=== PATIENT | female | born 1995 | race Caucasian/White ===

== ENCOUNTER 2019-11-23 22:29 | Emergency (ER) | payer OTHER ==
[~2019-11-23] VITALS: Ht 177.8 cm; Wt 68.2 kg
[2019-11-23 23:01] VITALS: Ht 177.8 cm; Wt 68.2 kg
[2019-11-23] MEDS ORDERED: TYLENOL W/CODEI1 TAB PO (23:43)
[2019-11-23 23:51] VITALS: BP 112/62
== END 2019-11-23 23:53 | disposition home or self-care (01) ==
LOC: D.ER 22:29
DX: T23.201A Burn of second degree of right hand, unspecified site, initial encounter (principal); X08.8XXA Exposure to other specified smoke, fire and flames, initial encounter; Y93.9 Activity, unspecified; Y92.9 Unspecified place or not applicable